=== PATIENT | male | born 1985 | race Caucasian/White ===

== ENCOUNTER 2018-05-12 06:07 | Day surgery (SDC) | payer OTHER ==
[~2018-05-12] VITALS: Ht 160 cm; Wt 50.5 kg
[~2018-05-12 06:07] MED LIST: AMAN100C12 PO; BETH25 PO; DDAV2 PO; DOCU250C91 PO; IBAN150T PO; LACT10SO8 PO; METO25XL PO; MIRALAX PO; OLAN10TA3 PO; PRAZ1 PO; QUET200XR PO; RINGERS SOLUTION,LACTATED 1,000 ML IV ONE
[2018-05-12] MEDS ORDERED: PROPOFOL 1% 20 ML VIAL IVP ONE (06:08)
[2018-05-12] MEDS ORDERED: SUCCINYLCHOLINE CHLORIDE 20 MG/ML 10 ML VIAL IVP ONE (06:08)
[2018-05-12] MEDS ORDERED: LIDOCAINE HCL/PF 2% 5 ML VIAL IM ONE (06:08)
[2018-05-12] MEDS ORDERED: FentaNYL CITRATE-PF 100 MCG/2 ML VIAL IVP ONE (06:08)
[2018-05-12] MEDS ORDERED: ESMOLOL HCL 10 MG/ML 10 ML VIAL IVP ONE (06:08)
[2018-05-12 06:57] LABS: BASOPHILS % (AUTO) 0.5 % (0.0-2.0); EOSINOPHILS % (AUTO) 3.5 % (1.0-6.0); HEMATOCRIT 43.5 % (41-53); HEMOGLOBIN 15.3 g/dL (13.5-17.5); LYMPHOCYTES % (AUTO) 27.3 % (22.0-44.0); MEAN CORPUSCULAR HEMOGLOBIN 30.1 pg (26.0-34.0); MEAN CORPUSCULAR HGB CONC 35.1 G/dL (31.0-37.0); MEAN CORPUSCULAR VOLUME 86 fL (80-100); MONOCYTES # (AUTO) 0.4 K/uL (0.1-1.0); MONOCYTES % (AUTO) 5.8 % (2.0-9.0); NEUTROPHILS # (AUTO) 4.5 K/uL (1.8-7.7); NEUTROPHILS % (AUTO) 62.9 % (40.0-70.0); PLATELET COUNT (AUTO) 229 K/uL (150-450); RED BLOOD CELL COUNT(AUTO) 5.07 MIL/uL (4.50-5.90); RED CELL DISTRIBUTION WIDTH 12.6 % (11.5-14.5)
[2018-05-12 07:06] LABS: ANION GAP 3 mmol/L (8-16); CALCIUM, TOTAL 8.8 mg/dL (8.8-10.5); CARBON DIOXIDE 31 mmol/L (22-29); CHLORIDE 105 mmol/L (98-107); CREATININE 0.88 mg/dL (0.60-1.30); GLOMERULAR FILTR. RATE CALC > 60 mL/min (>60); GLUCOSE,RANDOM 100 mg/dL (70-110); POTASSIUM 3.9 mmol/L (3.5-5.1); SODIUM SERUM 139 mmol/L (136-145); UREA NITROGEN, BLOOD 10 mg/dL (7-18)
[2018-05-12 07:08] LABS: INR 1.1 (0.9-1.1); PROTHROMBIN TIME 11.3 SEC (9.4-11.6)
[2018-05-12] MEDS ORDERED: CLINDAMYCIN PHOS 150 MG/ML 4 ML VIAL ONE (07:43)
[2018-05-12] MEDS ORDERED: FentaNYL CITRATE-PF 100 MCG/2 ML VIAL IVP PRN (09:15)
[2018-05-12] MEDS ORDERED: OXYGEN THERAPY IH SCH (09:15)
[2018-05-12] MEDS ORDERED: HYDROmorphone 2 MG/ML SYRINGE IVP PRN (09:15)
[2018-05-12] MEDS ORDERED: MEPERIDINE HCL/PF 25 MG/0.5 ML AMP IVP PRN (09:15)
== END 2018-05-12 13:45 | disposition home or self-care (01) ==
LOC: SURGERY 06:07
PROVIDERS: ATTEND Dentist General Practice
DX: K05.322 Chronic periodontitis, generalized, moderate (principal); F41.8 Other specified anxiety disorders; I10 Essential (primary) hypertension; M81.0 Age-related osteoporosis without current pathological fracture; E78.5 Hyperlipidemia, unspecified; F72 Severe intellectual disabilities; Z79.01 Long term (current) use of anticoagulants; Z88.1 Allergy status to other antibiotic agents; Z79.891 Long term (current) use of opiate analgesic; Z79.899 Other long term (current) drug therapy
CPT/HCPCS: 36415; 41899; 71045; 80048; 85025; 85610; 85730; 93005; J0330; J2704; J3010; J3490 ×2; J7120; S0077

== ENCOUNTER 2021-02-27 06:20 | Day surgery (SDC) | payer OTHER, MEDICAID ==
[~2021-02-27] VITALS: Ht 160 cm; Wt 50.5 kg
[~2021-02-27 06:20] MED LIST changes: +AMAN-6 PO; -AMAN100C12 PO; +DOCU-350 PO; -DOCU250C91 PO; -IBAN150T PO; +IBAN150T16 PO; +LACT10SO62 PO; -LACT10SO8 PO; +QUET200T5 PO; -QUET200XR PO
[2021-02-27] MEDS ORDERED: LIDOCAINE/PF 2% 5 ML VIAL IM ONE (06:21)
[2021-02-27] MEDS ORDERED: FentaNYL CITRATE PF 100 MCG/2 ML VIAL IVP ONE (06:21)
[2021-02-27] MEDS ORDERED: ONDANSETRON HCL 4 MG/2 ML VIAL IVP ONE (06:21)
[2021-02-27] MEDS ORDERED: PROPOFOL 1% 20 ML VIAL IVP ONE (06:21)
[2021-02-27] MEDS ORDERED: ESMOLOL HCL 10 MG/ML 10 ML VIAL IVP ONE (06:21)
[2021-02-27] MEDS ORDERED: SUCCINYLCHOLINE CHLORIDE 20 MG/ML 10 ML VIAL IVP ONE (06:21)
[2021-02-27] MEDS ORDERED: DEXAMETHASONE SOD PHOS 4 MG/ML VIAL IVP ONE (06:21)
[2021-02-27] MEDS ORDERED: RINGERS SOLUTION,LACTATED 1,000 ML IV ONE (06:30)
[2021-02-27] MEDS ORDERED: SODIUM CHLORIDE 0.9% 100 ML ONE (06:58)
[2021-02-27] MEDS ORDERED: CLINDAMYCIN PHOS 150 MG/ML 4 ML VIAL ONE (07:24)
[2021-02-27 07:41] LABS: BASOPHILS % (AUTO) 0.4 % (0.0-2.0); EOSINOPHILS % (AUTO) 5.5 % (1.0-6.0); HEMATOCRIT 42.5 % (41-53); HEMOGLOBIN 14.6 g/dL (13.5-17.5); LYMPHOCYTES # (AUTO) 1.9 K/uL (1.0-4.8); LYMPHOCYTES % (AUTO) 26.4 % (22.0-44.0); MEAN CORPUSCULAR HGB CONC 34.4 G/dL (31.0-37.0); MEAN CORPUSCULAR VOLUME 87 fL (80-100); MONOCYTES # (AUTO) 0.5 K/uL (0.1-1.0); MONOCYTES % (AUTO) 7.4 % (2.0-9.0); NEUTROPHILS # (AUTO) 4.4 K/uL (1.8-7.7); NEUTROPHILS % (AUTO) 60.3 % (40.0-70.0); PLATELET COUNT (AUTO) 225 K/uL (150-450); RED BLOOD CELL COUNT(AUTO) 4.87 MIL/uL (4.50-5.90)
[2021-02-27] MEDS ORDERED: PRAZ2 PO (07:44)
[2021-02-27] MEDS ORDERED: QUET300T2 PO (07:44)
[2021-02-27 07:46] LABS: COVID AG,FIA SOURCE NASOPHARYNGEAL
[2021-02-27] MEDS ORDERED: CARI3CAP PO ×2 (07:47→07:49)
[2021-02-27 07:53] LABS: ANION GAP 7 mmol/L (8-16); CALCIUM, TOTAL 8.9 mg/dL (8.8-10.5); CARBON DIOXIDE 30 mmol/L (22-29); CHLORIDE 106 mmol/L (98-107); CREATININE 0.97 mg/dL (0.60-1.30); GLOMERULAR FILTR. RATE CALC > 60 mL/min (>60); GLUCOSE,RANDOM 109 mg/dL (70-110); POTASSIUM 4.1 mmol/L (3.5-5.1); SODIUM SERUM 143 mmol/L (136-145); UREA NITROGEN, BLOOD 11 mg/dL (7-18)
[2021-02-27 07:55] LABS: PROTHROMBIN TIME 11.1 SEC (9.4-11.6)
[2021-02-27] MEDS ORDERED: MULT-711 PO (07:59)
[2021-02-27] MEDS ORDERED: DESM0.1T23 PO (07:59)
[2021-02-27] MEDS ORDERED: BETH25 PO (07:59)
[2021-02-27] MEDS ORDERED: METO25XL PO (07:59)
[2021-02-27] MEDS ORDERED: DOCU-350 PO (07:59)
[2021-02-27] MEDS ORDERED: AMAN-6 PO (07:59)
[2021-02-27] MEDS ORDERED: CALC-1009 PO (07:59)
[2021-02-27] MEDS ORDERED: ALEN70TA65 PO (07:59)
[2021-02-27 08:01] LABS: ALANINE AMINOTRANSFERASE 34 U/L (12-78); ALBUMIN 3.4 g/dL (3.4-5.0); ALKALINE PHOSPHATASE 109 U/L (46-116); ASPARTATE AMINOTRANSFERASE 17 U/L (15-37); BILIRUBIN,TOTAL 0.3 mg/dL (0.1-1.0); TOTAL PROTEIN, SERUM 7.6 g/dL (6.4-8.2)
== END 2021-02-27 11:50 | disposition home or self-care (01) ==
LOC: SURGERY 06:20
PROVIDERS: ATTEND Dentist General Practice
DX: K05.30 Chronic periodontitis, unspecified (principal); K03.6 Deposits [accretions] on teeth; F41.8 Other specified anxiety disorders; E78.5 Hyperlipidemia, unspecified; I10 Essential (primary) hypertension; M81.0 Age-related osteoporosis without current pathological fracture; Z79.899 Other long term (current) drug therapy; Z98.890 Other specified postprocedural states; Z88.8 Allergy status to other drugs, medicaments and biological substances
CPT/HCPCS: 36415; 41899; 71045; 80053; 85025; 85610; 85730; 87426; 93005; C9803; J0330; J1100; J2405; J2704; J3010; J3490 ×3; J7050; J7120; S0077